=== PATIENT | female | born 2000 | race Caucasian/White ===

== ENCOUNTER 2025-09-05 13:08 | Day surgery (SDC) | payer OTHER ==
[2025-09-05 13:37] VITALS: BMI 34.5
[2025-09-05 14:41] LABS: #Basophils Less than 0.03 10x3/uL (0.0-0.2); #Eosinophils 0.04 10x3/uL (0.0-0.5); #Monocytes 0.59 10x3/uL (0.0-1.1); #Neutrophils 6.47 10x3/uL (1.5-8.4); %Basophils 0.1 % (0.0-2.0); %Eosinophils 0.5 % (0.0-6.0); %Lymphocytes 17.5 % (18.0-47.0); %Monocytes 6.8 % (0.0-10.0); %Neutrophils 74.5 % (40.0-75.0); Hematocrit 32.8 % (34.9-44.5); Hemoglobin 11.3 g/dL (12.0-15.5); Mean Corpuscular Hemoglobin 30.4 pg (27.0-33.0); Mean Corpuscular Volume 88.2 fL (81.6-98.3); Platelet Count 144 10x3/uL (150-450); Red Blood Cell (RBC) Count 3.72 10x6/uL (3.90-5.03); White Blood Cell (WBC) Count 8.68 10x3/uL (3.5-10.5)
[2025-09-05 14:47] LABS: Protein, Urine Random Quant 40.0 mg/dL (1-14)
[2025-09-05 14:54] LABS: ALT (SGPT) 19 U/L (Less than 34); AST (SGOT) 20 U/L (11-34); Albumin 2.6 g/dL (3.1-4.5); Alkaline Phosphatase 88 U/L (40-110); Anion Gap 13 mmol/L (10-20); BUN (Urea Nitrogen) 8 mg/dL (7.0-18.7); Bilirubin, Total 0.2 mg/dL (0.3-1.2); Calc. Creatinine Clearance 207 mL/min (70-130); Calcium 8.9 mg/dL (7.8-10.44); Carbon Dioxide 20 mmol/L (22-29); Chloride 108 mmol/L (98-107); Globulin 3.2 g/dL (2.4-3.5); Glucose 76 mg/dL (70-105); Potassium 4.1 mmol/L (3.5-5.1); Sodium 137 mmol/L (136-145)
== END 2025-09-05 15:15 | disposition home or self-care (01) ==
LOC: CSHLD/OP 13:08
PROVIDERS: ATTEND Student in an Organized Health Care Education/Training Program
DX: O99.891 Other specified diseases and conditions complicating pregnancy (principal); R03.0 Elevated blood-pressure reading, without diagnosis of hypertension; M79.89 Other specified soft tissue disorders; Z3A.33 33 weeks gestation of pregnancy
CPT/HCPCS: 80053; 82570; 84156; 85025

== ENCOUNTER 2025-09-08 08:31 | Inpatient (IN) | payer OTHER ==
[2025-09-08 08:50] VITALS: BMI 34.5
[2025-09-08] MEDS ORDERED: hydrALAZINE 20 MG/ML VIAL SLOW IVP PRN ×3 (09:01→11:59)
[2025-09-08 09:38] LABS: #Basophils 0.03 10x3/uL (0.0-0.2); #Eosinophils 0.06 10x3/uL (0.0-0.5); #Monocytes 0.45 10x3/uL (0.0-1.1); #Neutrophils 5.84 10x3/uL (1.5-8.4); %Basophils 0.4 % (0.0-2.0); %Eosinophils 0.8 % (0.0-6.0); %Lymphocytes 18.4 % (18.0-47.0); %Monocytes 5.7 % (0.0-10.0); %Neutrophils 73.9 % (40.0-75.0); Hematocrit 32.7 % (34.9-44.5); Hemoglobin 11.0 g/dL (12.0-15.5); Mean Corpuscular Hemoglobin 30.1 pg (27.0-33.0); Mean Corpuscular Volume 89.3 fL (81.6-98.3); Platelet Count 140 10x3/uL (150-450); Red Blood Cell (RBC) Count 3.66 10x6/uL (3.90-5.03); White Blood Cell (WBC) Count 7.89 10x3/uL (3.5-10.5)
[2025-09-08 09:41] LABS: Protein, Urine Random Quant 237.0 mg/dL (1-14)
[2025-09-08 09:51] LABS: ALT (SGPT) 15 U/L (Less than 34); AST (SGOT) 18 U/L (11-34); Albumin 2.5 g/dL (3.1-4.5); Alkaline Phosphatase 86 U/L (40-110); Anion Gap 11 mmol/L (10-20); BUN (Urea Nitrogen) 9 mg/dL (7.0-18.7); Bilirubin, Total 0.2 mg/dL (0.3-1.2); Calc. Creatinine Clearance 188 mL/min (70-130); Calcium 8.5 mg/dL (7.8-10.44); Carbon Dioxide 20 mmol/L (22-29); Chloride 110 mmol/L (98-107); Globulin 3.0 g/dL (2.4-3.5); Glucose 116 mg/dL (70-105); Potassium 4.1 mmol/L (3.5-5.1); Sodium 137 mmol/L (136-145)
[2025-09-08] MEDS ORDERED: Calcium Gluc 4.6 MEQ/10 ML (100 MG/ML) SLOW IVP PRN (11:59)
[2025-09-08] MEDS: Magnesium Sulfate 20 gm/500 ml 20 GM/500 ML BAG IVPB SCH (13:07)
[2025-09-08 14:50] LABS: Syphilis Antibody Index 0.09 S/CO (<1.00 Non-Reactive)
[2025-09-08 15:00] LABS: Hep B Surf Ag - L&D Non-Reactive S/CO (NonReactive)
[2025-09-08 16:15] LABS: HIV (1/2) Antibody/Antigen Non-Reactive (NonReactive); HIV 1/2 INDEX 0.19 S/CO (<1.00)
[2025-09-08] MEDS: Acetaminophen 500 MG TAB PO PRN (21:22)
[2025-09-09 03:23] LABS: #Basophils Less than 0.03 10x3/uL (0.0-0.2); #Eosinophils Less than 0.03 10x3/uL (0.0-0.5); #Monocytes 0.54 10x3/uL (0.0-1.1); #Neutrophils 10.04 10x3/uL (1.5-8.4); %Basophils 0.1 % (0.0-2.0); %Eosinophils 0.1 % (0.0-6.0); %Lymphocytes 10.5 % (18.0-47.0); %Monocytes 4.5 % (0.0-10.0); %Neutrophils 84.0 % (40.0-75.0); Hematocrit 33.6 % (34.9-44.5); Hemoglobin 11.4 g/dL (12.0-15.5); Mean Corpuscular Hemoglobin 30.1 pg (27.0-33.0); Mean Corpuscular Volume 88.7 fL (81.6-98.3); Platelet Count 178 10x3/uL (150-450); Red Blood Cell (RBC) Count 3.79 10x6/uL (3.90-5.03); White Blood Cell (WBC) Count 11.95 10x3/uL (3.5-10.5)
[2025-09-09 03:42] LABS: ALT (SGPT) 16 U/L (Less than 34); AST (SGOT) 20 U/L (11-34); Albumin 2.5 g/dL (3.1-4.5); Alkaline Phosphatase 89 U/L (40-110); Anion Gap 10 mmol/L (10-20); BUN (Urea Nitrogen) 8 mg/dL (7.0-18.7); Bilirubin, Total 0.3 mg/dL (0.3-1.2); Calc. Creatinine Clearance 197 mL/min (70-130); Calcium 7.6 mg/dL (7.8-10.44); Carbon Dioxide 19 mmol/L (22-29); Chloride 104 mmol/L (98-107); Globulin 3.1 g/dL (2.4-3.5); Glucose 110 mg/dL (70-105); Potassium 4.2 mmol/L (3.5-5.1); Sodium 129 mmol/L (136-145)
== END 2025-09-09 17:15 | disposition short-term general hospital (02) | DRG 833 ==
LOC: CSHLD/OP 08:31 → CSHLD 12:23
PROVIDERS: ADMIT Student in an Organized Health Care Education/Training Program; ATTEND Student in an Organized Health Care Education/Training Program
DX: O14.13 Severe pre-eclampsia, third trimester (principal); Z3A.34 34 weeks gestation of pregnancy; Z79.899 Other long term (current) drug therapy; Z79.890 Hormone replacement therapy
CPT/HCPCS: 36415; 51702; 76815; 80053; 82570; 84156; 85025; 86780; 86850; 86900; 86901; 87340; 87389; 99285; J0360; J0702; J3475